=== PATIENT | female | born 1955 | race Hispanic/Latino ===

== ENCOUNTER 2016-12-16 06:14 | Day surgery (SDC) | payer BC ==
--- NOTE | 2016-12-10 12:00 | Anesthesia Consultation ---
Anesthesia Consult and Med Hx Date of service: 12/16/16 - Airway Anesthetic Teeth Evaluation: Good ROM Head & Neck: Adequate Mental/Hyoid Distance: Adequate Mallampati Class: Class II Intubation Access Assessment: Probably Good - Pulmonary Exam CTA: Yes - Cardiac Exam Cardiac Exam: RRR - Pre-Operative Health Status ASA Pre-Surgery Classification: ASA3 Proposed Anesthetic Plan: General - Pulmonary Hx Smoking: No SOB: No Hx Sleep Apnea: (HIGH RISK COLLIN) - Cardiovascular System Hx Hypertension: Yes (DENIES CP, LAST EKG 12/03/16 SR, IRBBB) Hx Coronary Artery Disease: No Hx Cardia Arrhythmia: Yes (incomplete RBBB) - Central Nervous System Hx Neuromuscular Disorder: Yes (severe neuropathy LE) Hx Psychiatric Problems: No - Gastrointestinal Hx Gastroesophageal Reflux Disease: No - Endocrine Hx Renal Disease: Yes (ARF - resolved, possibly due to antibiotic levaquin) Hx Liver Disease: Yes (h/o fatty liver, cirrhosis) Hx Non-Insulin Dependent Diabetes: No (prediabetic) - Hematic Hx Anemia: No Hx Sickle Cell Disease: No - Other Systems Hx Alcohol Use: Yes (quit 06/24, prior 3-5 drinks/week) Hx Substance Use: No Hx Cancer: No Hx Obesity: Yes - Additional Comments Anesthesia Medical History Comments: high cholesterol, severe neuropathy in lower extremities - patient states "cannot feel lower leg or feet." Diverticulitis
[~2016-12-16 06:14] MED LIST: NACL 0.9% 1000 ML 1,000 ML IV SCH; PEPCID IV NR; VERSED IV NR
[2016-12-16] MEDS ORDERED: NACL BACTERIOSTATIC INFILTRATI ONE (06:53)
[2016-12-16] MEDS ORDERED: ZOFRAN IV PRN (07:29)
[2016-12-16] MEDS ORDERED: ANCEF/STERILE WATER 2 GM/20 ML IV NR (07:30)
[2016-12-16] MEDS ORDERED: XYLOCAINE MPF 2% ONE (07:33)
[2016-12-16] MEDS ORDERED: DIPRIVAN 10 MG/ML IV ONE (07:34)
[2016-12-16] MEDS ORDERED: MARCAINE-EPI 0.5%-1:200,000 INFILTRATI ONE ×3 (07:46→09:47)
[2016-12-16] MEDS ORDERED: XYLOCAINE 1% 20 mL ONE (07:46)
[2016-12-16] MEDS ORDERED: DECADRON ONE ×2 (07:46→07:51)
[2016-12-16] MEDS ORDERED: SUBLIMAZE IV NR (07:47)
[2016-12-16] MEDS ORDERED: ZEMURON IV ONE (07:48)
--- NOTE | 2016-12-16 07:48 | Anesthesia Day of Surgery ---
Anesthesia Day of Surgery - Day of Surgery Patient Examined: Yes Patient H&P Reviewed: Yes Patient is NPO: Yes
[2016-12-16] MEDS ORDERED: ZOFRAN ONE (07:51)
[2016-12-16] MEDS ORDERED: NEOSPORIN GU IR ONE ×2 (08:00→10:24)
[2016-12-16] MEDS ORDERED: NEURONTIN PO NR (08:00)
[2016-12-16] MEDS ORDERED: NACL 0.9% 200 ML ONE (08:20)
[2016-12-16] MEDS ORDERED: TRANEXAMIC ACID ONE (08:20)
[2016-12-16] MEDS ORDERED: NACL 0.9% IR ONE (10:24)
[2016-12-16] MEDS: DILAUDID IV PRN ×2 (12:50→13:12)
[2016-12-16] MEDS ORDERED: PROVENTIL IH ONE (13:39)
--- NOTE | 2016-12-16 13:44 | Operative Report ---
PREOPERATIVE DIAGNOSIS: Right knee severe degenerative joint disease, medial compartment. POSTOPERATIVE DIAGNOSIS: Right knee severe degenerative joint disease, medial compartment. PROCEDURES PERFORMED: Right knee unicompartmental arthroplasty utilizing [employer] [place] system with: 1. Size small cemented femur. 2. Size A cemented tibia. 3. A 3-mm polyethylene insert. SURGEON: Prasanna Pereira M.D. UROLOGIC NURSE: Sebastian Reeves CSA. ANESTHESIA: Spinal epidural plus adductor block. ESTIMATED BLOOD LOSS: Minimal. COMPLICATIONS: None. DESCRIPTION OF PROCEDURE: The patient underwent successful induction of anesthesia. Lower extremity was then carefully prepped and draped in usual fashion after being positioned in a leg koch, exsanguinated, tourniquet inflated. Antibiotics tranexamic acid was preoperatively administered. Local anesthesia was infiltrated. A standard median parapatellar incision was utilized. Median arthrotomy was made from the superior pole of the patella to the tibial tubercle. Appropriate exposure of the joint carried out. The lateral compartment was pristine well preserved patellofemoral. ACL was intact. Medial compartment ankylosis felt to be an excellent candidate for the arthroplasty as noted. Standard technique was then utilized with appropriate alignment. Cuts were made utilizing an extramedullary guide. Excellent sizing for the size A implant and for 3 or 4 mm insert. The intramedullary farhan was introduced in the femur. Standard posterior cut was made on the femur with the coupling guide. The gaps were then balanced with Spigot reamers. She had full range of motion. Excellent stability was noted with the 3 mm slightly tight with the 4. The wound was once again irrigated. Posterior osteophytes removed. The anterior chamfer cut made. The keel prepared and the implants placed. Again the patient was noted to have full range of motion and excellent stability noted with the size of a 3 mm implant which was placed. The wounds were thoroughly irrigated. The local analgesic was infiltrated with lidocaine anesthetic. The arthrotomy reapproximated with Ethibond sutures followed by 3-0 and 2-0 Vicryl and subcutaneous tissue with Monocryl for the skin. Island dressing was applied. She was taken to the Recovery in satisfactory condition having tolerated the procedure well. JOB# [id number] RODNEYP/RAMON
--- NOTE | 2016-12-16 14:48 | Admit Criteria Form ---
Admission Criteria Documentation: AMBULATORY SURGERY EXCEPTION CRITERIA Ambulatory Surgery Exception Criteria ( Place 'X' for any and all applicable criteria): Surgery or procedure performed on ambulatory basis may require inpatient stay for[A] ANY ONE of the following(1)(2)(3)(4)(5)(6)(7)(8)(9): [] I. A preoperative situation, condition, or finding that warrants inpatient stay as indicated by ANY ONE of the following: [] a) Inpatient care needed because of severity of a disease or condition rather than the surgery (eg, severe cardiac or respiratory disease, severe infection) (15) (16 ) (17) (18) [] b) Emergent procedure (eg, angioplasty for acute ischemia)(19) [] c) Complex surgical approach or situation as indicated by ANY ONE of the following(3): [] i) Open approach needed instead of usual endoscopic, transcatheter, or other less invasive procedure [] ii) Difficult approach because of previous operation [] iii) Airway monitoring required after open neck procedures(20)(21) [] iv) Large mass requiring unusually extensive dissection [] v) Additional complicating feature requiring inpatient care (eg, drain management)(22(23): [] d) Major surgery in a pt with high anesthetic risk as indicated by ANY ONE of the following (2)(3)(5)(7)(8): [] i) ASA risk class III or higher (severe systemic disease impairing function) [D] [] ii) Advanced age (eg, older than 85 years)(14)(24) [] iii) Symptomatic heart failure(25) [] iv) Symptomatic asthma or COPD(8)(21) [] v) Morbid obesity with hemodynamic or respiratory problems(20)( 21)(26)(27) [] vi) Obstructive sleep apnea(20)(21) [] vii) Former premature infants who are younger than 60 weeks [] viii) High risk for severe postoperative abnormalities (eg, severe postoperative hypocalcemia after parathyroidectomy for severe hyperparathyroidism)(27)( 28) [] ix) Unstable angina(25) [] e) Drug-related risk requiring inpatient stay as indicated by ANY ONE of the following(5)(10)(14)(32)(33) [] i) Procedure requires discontinuing drugs or other therapy (eg , antiarrhythmic medication, antiseizure medication), which necessitates inpatient observation or treatment.(18)(31) [] ii) Major surgery and high risk drug use as indicated by ANY ONE of the following: [] 1) Active abuse of cocaine or similar drug [] 2) Monoamine oxidase inhibitor use [] 3) Other drug identified as posing risk [] f) Inadequate outpatient care situation as indicated by ANY ONE of the following(5)(10)(14)(32)(33) [] i) Patient lives remote from medical facility and procedure has urgent complication potential, and temporary nearby residence cannot be arranged [] ii) Patient will have postprocedure incapacitation and inadequate assistance at home, or alternative level of care cannot be arranged. [] iii) Patient will have long general anesthesia or procedure side effect resolution time, and competent person to stay with patient on first postoperative night at home or alternative level of care cannot be arranged. []iv) Other inadequate outpatient situation that cannot be handled by other means [] II. A perioperative event, condition, or finding that warrants inpatient stay as indicated by ANY ONE of the following (1)(2)(3): [] a) Inadequate physiologic recovery: cardiovascular, respiratory, or hemodynamic status not normal or near preoperative baseline(18) [] b) Hemodynamic instability [] c) Patient not alert with near normal or baseline mental status [] d) Temperature not normal or as expected and not appropriate for outpatient treatment of condition [] e) Ambulatory or appropriate activity level status not yet achieved post procedure [E](34)(35)(36) [] f) Operative site not appropriate (eg, unexpected or excessive drainage or bleeding) [] g) Postoperative effects not resolved or adequately managed (eg, significant pain or vomiting not appropriate for outpatient or next level of care)(10)(12) [] h) Complicating features requiring inpatient care as indicated by ANY ONE of the following(37): [] i) Severe complications of procedure (eg, bowel injury, airway compromise, vascular injury,severe hemorrhage) [] ii) Extensive (eg, dissection far beyond usual scope of procedure ) or prolonged (eg, 120 minutes beyond usual) surgery needed requiring inpatient postoperative care [] iii) Conversion to an open or complex procedure that requires inpatient care (eg, open vs laparoscopic cholecystectomy, abdominal vs vaginal hysterectomy)(38) [] iv) Comorbid condition or test result identified during or post procedure that requires inpatient care (7) [] v) Malignant hyperthermia(30) [] vi) Other complicating feature requiring inpatient care(22)(23) Inpatient stay may be needed until ALL of the following are present (1)(2)(3)(4) (5)(6)(10)(14)(33)(40): []a) Physiologic recovery: cardiovascular, respiratory, and hemodynamic status normal or near preoperative baseline []b) Hemodynamic stability []c) Patient alert, with near normal or baseline mental status []d) Temperature appropriate: patient afebrile or temperature appropriate for outpt treatment of condition []e) Activity level appropriate: ambulatory or appropriate activity level post procedure []f) Operative site appropriate as indicated by ALL of the following: []i) Site dry or with expected drainage []ii) Any blood noted is as expected for procedure. []g) Postoperative effects resolved or managed as indicated by ALL of the following: []i) Pain management appropriate for outpatient (or next level of) care(10) []ii) Minimal nausea and vomiting: if present, successfully treated with oral medication(12) []iii) Headache, dizziness, or drowsiness (if present) are mild. []h) Voiding status acceptable as indicated by ANY ONE of the following: []i) Voiding spontaneously []ii) No voiding but instructions given for follow-up in 6 to 8 hours []iii) Urinary catheter in place, and instructions given for follow-up []i) Complicating features requiring inpatient care manageable at a lower level of care(37) []j) Comorbid conditions manageable at a lower level of care(37) The original [employer] content created by [employer] has been revised. The portions of the content which have been revised are identified through the use of italic text or in bold, and [employer] [email or web address] [email or web address] has neither reviewed nor approved the modified material. All other unmodified content is copyright [employer]. Please see references footnoted in the original [employer] edition 2016
--- NOTE | 2016-12-16 15:01 | Post Anesthesia Evaluation ---
- Post Anesthesia Evaluation Patient Participated: Yes Airway Patent: Yes Stable Respiratory Function: Yes Nausea/Vomiting: No Temp > 96.8F: Yes Pain Manageable: Yes Adequeate Hydration: Yes Anesthesia Complications: No Block Receding Appropriately: Yes Patient on Ventilator: No
[2016-12-16 15:47] VITALS: BP 116/74
== END 2016-12-16 17:10 | disposition home or self-care (01) ==
LOC: OR 06:14 → EDSTATUS 08:30 → OR 17:10
PROVIDERS: ATTEND Orthopaedic Surgery
DX: M17.11 Unilateral primary osteoarthritis, right knee (principal); I10 Essential (primary) hypertension; F10.21 Alcohol dependence, in remission; E66.9 Obesity, unspecified; Z68.41 Body mass index [BMI] 40.0-44.9, adult
CPT/HCPCS: 27442; 64447; 88305; A4217; C1776; J1100; J1170; J2250; J2405; J2704; J3010; J7030